=== PATIENT | female | born 1940 | race Caucasian/White ===

== ENCOUNTER 2019-09-30 12:58 | Outpatient (CLI) | payer MEDICARE, SELFPAY | END 2019-09-30 12:59 | disposition home or self-care (01) | LOC: ANHAUDIO 13:00 | PROVIDERS: PCP Family Medicine; Visit Provider Family Medicine | DX: H90.3 Sensorineural hearing loss, bilateral (principal) | CPT/HCPCS: 92557; 92567 ==

== ENCOUNTER 2021-08-23 14:54 | Outpatient (CLI) | payer MEDICARE, SELFPAY ==
--- NOTE | ~2021-08-23 | MM_ITS ---
EXAMINATION: MM screening liza BI w jostin HISTORY: Screening TECHNIQUE: Craniocaudal and mediolateral oblique 3-D tomosynthesis images were obtained and synthetic 2-D images were generated. CAD analysis was submitted and interpreted. COMPARISON: No prior mammogram is available for comparison at this institution. BREAST PARENCHYMAL COMPOSITION: The breasts are heterogeneously dense, which may obscure small masses . FINDINGS: There are benign bilateral vascular calcifications. There is no evidence of suspicious mass , calcification, or architectural distortion to suggest malignancy in either breast. There has been n o suspicious interval change. IMPRESSION: 1. No mammographic evidence of malignancy. 2. Recommend routine screening mammography in one year. BI-RADS Category 2: Benign finding(s). Reviewed, dictated and finalized at location A.
== END 2021-08-23 14:55 | disposition home or self-care (01) ==
PROVIDERS: PCP Family Medicine; Visit Provider Family Medicine
DX: Z12.31 Encounter for screening mammogram for malignant neoplasm of breast (principal)
CPT/HCPCS: 77063; 77067

== ENCOUNTER 2022-11-29 13:29 | Outpatient (CLI) | payer MEDICARE, SELFPAY ==
--- NOTE | ~2022-11-29 | DEXA_ITS ---
Bone Density Report Name: MARCO A BARNHART Age: 82 Sex: Female Ethnicity: White Date of : 1940 Indication: postmenopausal; screening for osteoporosis; height loss; cancer; hysterectomy; Referring Provider: MINI OSBORN Study: Bone densitometry was performed. Exam Date: November 29, 2022 Accession number: [id number] Bone Density: Region BMD T-score Z-score Classification AP Spine(L1, L2) 1.156 1.6 4.1 Normal Femoral Neck (Left) 0.672 -1.6 0.7 Osteopenia Total Hip (Left) 0.799 -1.2 0.9 Osteopenia World Health Organization criteria for BMD impression classify patients as: Normal (T-score at or above -1.0), Osteopenia (T-score between -1.0 and -2.5), or Osteoporosis (T-score at or below -2.5). 10-year Fracture Risk(1): Major Osteoporotic Fracture 14% Hip Fracture 3.5% Reported Risk Factors: [place] (), Neck BMD=0.672, BMI=27.7 (1) FRAX(R) Version 3.08. Fracture probability calculated for an untreated patient. Fracture probability may be lower if the patient has received treatment. Clinical Information Provided by Patient: Has the following medical conditions: Cancer, Hysterectomy Patient maximum height was 68 Menopause Age: 51 Drinks caffeinated beverages Onset of menses at age 19 Number of children 2 Impression: The patient has low bone mass, based on the Left Femoral Neck T-score. The patient has an estimated ten-year risk of hip fracture of 3.5% and an estimated ten-year risk of major fracture of 14%, based on the WHO FRAX algorithm. Discussion: BONE DENSITY IS LOW AT ONE OR MORE SKELETAL SITES. THE PATIENT'S BMD AND CLINICAL RISK FACTORS CONTRIBUTE TO THIS PATIENT'S INCREASED RISK OF FRACTURE. This patient's lowest T-score is low at one or more skeletal sites. It meets the World Health Organization's (WHO) criteria for ?low bone mass? (T-score between -1.0 and -2.5). The patient's 10-year risk of hip fracture as calculated by FRAX exceeds the threshold where pharmacological therapy is recommended by the National Osteoporosis Foundation (NOF). However, all treatment decisions require clinical judgment and consideration of individual patient factors, including patient preferences, comorbidities, previous drug use, risk factors not captured in the FRAX model (e.g., frailty, falls, vitamin D deficiency, increased bone turnover, interval significant decline in bone density) and possible under or overestimation of fracture risk by FRAX. The patient should follow a healthful lifestyle (good nutrition with adequate calcium and vitamin D, and appropriate weight-bearing exercise). Follow-Up: Consider a repeat BMD and Vertebral Fracture Assessment (VFA) exam in 2 years or sooner if medically necessary, to reassess this patient's status. Reported by: RASTA on 11/29/2022 2:02:00 PM.
--- NOTE | ~2022-11-29 | MM_ITS ---
EXAMINATION: MM screening liza BI w jostin HISTORY: Screening mammogram TECHNIQUE: Craniocaudal and mediolateral oblique 3-D tomosynthesis images were obtained and synthetic 2-D images were generated. CAD analysis was submitted and interpreted. COMPARISON: August 23, 2021 bilateral screening mammogram BREAST PARENCHYMAL COMPOSITION: The breasts are heterogeneously dense, which may obscure small masses . FINDINGS: There is stable diminished size of the left breast compared to the right consistent with hi story of prior partial mastectomy for breast cancer in 1992. Multiple bilateral scattered benign calcifications and prominent arterial calcifications are noted. T here is no evidence of suspicious mass, calcification, or architectural distortion to suggest maligna ncy in either breast. There has been no suspicious interval change. IMPRESSION: 1. Benign findings. No mammographic evidence of malignancy. 2. Recommend routine screening mammography in one year. BI-RADS Category 2: Benign finding(s). Reviewed, dictated and finalized at location A.
== END 2022-11-29 13:30 | disposition home or self-care (01) ==
LOC: ANHIMG 13:30
PROVIDERS: PCP Family Medicine; Visit Provider Family Medicine
DX: Z12.31 Encounter for screening mammogram for malignant neoplasm of breast (principal); Z78.0 Asymptomatic menopausal state; M85.852 Other specified disorders of bone density and structure, left thigh
CPT/HCPCS: 77063; 77067; 77080

== ENCOUNTER 2023-12-18 01:41 | Day surgery (SDC) | payer MEDICARE, SELFPAY ==
[2023-12-05 09:56] VITALS: BMI 24.8
[2023-12-18 08:55] VITALS: BP 151/69; PULSE 77; RESP 18; TEMP 36.1; O2SAT 99
[2023-12-18] MEDS: LACTATED RINGERS 1,000 ML 150 ML IV CONT (08:57)
--- NOTE | 2023-12-18 09:02 | WPDANESEPPF ---
Anes - Initial Pre Proc Eval Procedure: Operation Date: 12/18/23 09:30 Proposed Procedures p Esophagogastroduodenoscopy - Juaquin Manrique MD Date/Time: 12/18/23 09:02 Surgeon: Juaquin Manrique MD Pre Op Diagnosis: GERD, Dyskinesia of esophagus, Patient Data Age: 83 Gender: F Height: 1.7 m Weight: 69.8 kg Last Vital Signs Temp 96.9 F L 12/18/23 08:55 Pulse 77 12/18/23 08:55 Resp 18 12/18/23 08:55 BP 151/69 H 12/18/23 08:55 Pulse Ox 99 12/18/23 08:55 O2 Del Method Room Air 12/18/23 08:55 Allergies Allergy/AdvReac Type Severity Reaction Status Date / Time codeine Allergy Unknown Dizziness Verified 12/18/23 08:29 Sulfa (Sulfonamide Allergy Unknown Nausea and Verified 12/18/23 08:29 Antibiotics) Vomiting sulfur dioxide Allergy Unknown Confusion Verified 12/18/23 08:29 Home Medications Medication Instructions Recorded Confirmed Type acetaminophen 650 mg 650 mg PO Q12H 04/30/19 12/18/23 History tablet,extended release (Tylenol Arthritis Pain) calcium carbonate 500 mg-vitamin 1 tablet PO DAILY 04/30/19 12/18/23 History D3 3.125 mcg (125 unit) tablet clopidogrel 75 mg tablet (Plavix) 75 mg PO DAILY #90 tabs 12/11/21 12/18/23 Rx clotrimazole 1 % vaginal cream 1 appful vaginal QHS #45 grams 08/12/22 12/18/23 Rx (Clotrimazole-7) pantoprazole 40 mg tablet,delayed See Rx Instructions .Route 04/17/23 12/18/23 Rx release .COMPLEX #180 tabs carvedilol 25 mg tablet 25 mg PO Q12H 04/30/23 12/18/23 History fosinopril 20 mg tablet See Rx Instructions .Route 05/05/23 12/18/23 Rx .COMPLEX #360 tabs fluticasone propionate 50 See Rx Instructions .Route 06/24/23 12/18/23 Rx mcg/actuation nasal .COMPLEX #48 mL spray,suspension pravastatin 40 mg tablet 40 mg PO DAILY #90 tabs 07/09/23 12/18/23 Rx cholestyramine-aspartame 4 gram See Rx Instructions .Route 08/11/23 12/18/23 Rx oral powder (Prevalite) .COMPLEX #693 grams amlodipine 10 mg tablet 10 mg PO DAILY #90 tabs 10/24/23 12/18/23 Rx hydrochlorothiazide 25 mg tablet 25 mg PO DAILY #90 tabs 10/24/23 12/18/23 Rx carvedilol 6.25 mg tablet 12.5 mg PO Q12H 12/18/23 12/18/23 History Patient hx anesthesia problems: none Family hx anesthesia problems: none Results Review: All pre-operative results and documents have been reviewed as part of the pre-operative evaluation. [facility] Past Medical History Medical History Tear of left gluteus medius tendon Surgical History Surgical History History of fundoplication S/P gastric surgery S/P total hip arthroplasty Right Family History Family History Mother Diabetes mellitus Father Family history of cardiovascular disease Social History Social History Smoking status: Never smoker Second hand tobacco smoke exposure: No Alcohol intake: never Substance use: never Substance use type: does not use Do You Feel Safe in your Home?: Yes Lack of Transportation: No Lack of Food: Never True Current Housing: I Have Housing Concerned About Future Housing: No Difficulty Paying Gas/Electric Bills: No Difficulty Paying for Meds: No Currently Unemployed: YES Education: Don't Know Difficulty w/ Childcare or Family Care: No Living arrangements: alone Occupation/Education: retired Gender identity (if verbalized by the patient): Female Sexual Orientation (if Verbalized by the Patient): Straight or Heterosexual Spiritual care concerns: No Anes - Eval Final PreProcedure Day of Procedure 12/18/23 09:02 Patient weight: normal Heart: regular rate and rhythm Lungs: clear to auscultation Airway: Mallampati scale class II Neurological: alert and oriented Last oral intake: >/= 8 hours ASA classification: III Emergent: no
--- NOTE | 2023-12-18 09:11 | SUR.PREOP ---
Patient states she took her Plavix yesterday. No cardiac clearance or instructions to hold blood thinner on chart. Spoke with Dr. Mcdermott and Dr. Delaney regarding this. Okay to proceed with procedure today per both.
--- NOTE | 2023-12-18 09:27 | PM.HPGS ---
History of Present Illness History of Present Illness Consent: Risks, benefits, and alternatives have been discussed and questions answered. Patient agrees to proceed with procedure. Chief complaint: GERD, Dyskinesia of esophagus, Narrative: Alka Ayoub is a 83 year old female with more symptomatic gerd despite protonix, also Lee's in 2019, h/o fundoplication Review of Systems Review of Systems: All systems reviewed & are unremarkable except as noted in HPI and below PMFSH Past Medical History Medical History Tear of left gluteus medius tendon Surgical History Surgical History (Updated 12/18/23 @ 09:30 by Juaquin Manrique MD) History of fundoplication S/P gastric surgery S/P total hip arthroplasty Right Family History Family History Mother Diabetes mellitus Father Family history of cardiovascular disease Social History Social History Smoking status: Never smoker Second hand tobacco smoke exposure: No Alcohol intake: never Substance use: never Substance use type: does not use Do You Feel Safe in your Home?: Yes Lack of Transportation: No Lack of Food: Never True Current Housing: I Have Housing Concerned About Future Housing: No Difficulty Paying Gas/Electric Bills: No Difficulty Paying for Meds: No Currently Unemployed: YES Education: Don't Know Difficulty w/ Childcare or Family Care: No Living arrangements: alone Occupation/Education: retired Gender identity (if verbalized by the patient): Female Sexual Orientation (if Verbalized by the Patient): Straight or Heterosexual Spiritual care concerns: No Meds Home Medications and Allergies Home Medications Medication Instructions Recorded Confirmed Type acetaminophen 650 mg 650 mg PO Q12H 04/30/19 12/18/23 History tablet,extended release (Tylenol Arthritis Pain) calcium carbonate 500 mg-vitamin 1 tablet PO DAILY 04/30/19 12/18/23 History D3 3.125 mcg (125 unit) tablet clopidogrel 75 mg tablet (Plavix) 75 mg PO DAILY #90 tabs 12/11/21 12/18/23 Rx clotrimazole 1 % vaginal cream 1 appful vaginal QHS #45 grams 08/12/22 12/18/23 Rx (Clotrimazole-7) pantoprazole 40 mg tablet,delayed See Rx Instructions .Route 04/17/23 12/18/23 Rx release .COMPLEX #180 tabs carvedilol 25 mg tablet 25 mg PO Q12H 04/30/23 12/18/23 History fosinopril 20 mg tablet See Rx Instructions .Route 05/05/23 12/18/23 Rx .COMPLEX #360 tabs fluticasone propionate 50 See Rx Instructions .Route 06/24/23 12/18/23 Rx mcg/actuation nasal .COMPLEX #48 mL spray,suspension pravastatin 40 mg tablet 40 mg PO DAILY #90 tabs 07/09/23 12/18/23 Rx cholestyramine-aspartame 4 gram See Rx Instructions .Route 08/11/23 12/18/23 Rx oral powder (Prevalite) .COMPLEX #693 grams amlodipine 10 mg tablet 10 mg PO DAILY #90 tabs 10/24/23 12/18/23 Rx hydrochlorothiazide 25 mg tablet 25 mg PO DAILY #90 tabs 10/24/23 12/18/23 Rx carvedilol 6.25 mg tablet 12.5 mg PO Q12H 12/18/23 12/18/23 History Allergies Allergy/AdvReac Type Severity Reaction Status Date / Time codeine Allergy Unknown Dizziness Verified 12/18/23 08:29 Sulfa (Sulfonamide Allergy Unknown Nausea and Verified 12/18/23 08:29 Antibiotics) Vomiting sulfur dioxide Allergy Unknown Confusion Verified 12/18/23 08:29 Vital Signs Vital Signs - 24 hr 12/18/23 08:55 Temperature 96.9 F L Pulse Rate 77 Respiratory Rate 18 Blood Pressure 151/69 H Pulse Oximetry 99 Oxygen Delivery Room Air Exam Const: General: comfortable and no acute distress HENMT: Face/Nose/Sinus: Normal nares present Eyes: General: appearance normal, both eyes and all related structures Neck: Neck: no JVD Resp: Auscultation: clear to auscultation bilaterally Cardio: Rate: regular rate Rhythm: regular rhythm GI: Inspection:
[2023-12-18 09:41] VITALS: BP 93/53; PULSE 75; RESP 26; O2SAT 100
[2023-12-18 09:51] VITALS: BP 106/58; PULSE 73; RESP 15; O2SAT 100
[2023-12-18 10:01] VITALS: BP 120/56; PULSE 67; RESP 21; O2SAT 100
== END 2023-12-18 10:15 | disposition home or self-care (01) ==
PROVIDERS: PCP Family Medicine; Referring Provider Physician Assistant; Visit Provider Internal Medicine Gastroenterology
PROC: 0DJ08ZZ Inspection of Upper Intestinal Tract, Via Natural or Artificial Opening Endoscopic (ICD-10-PCS; CPT 43235; principal; 2023-12-18 09:30)
DX: K22.70 Barrett's esophagus without dysplasia (principal); K44.9 Diaphragmatic hernia without obstruction or gangrene; K21.9 Gastro-esophageal reflux disease without esophagitis; Z79.02 Long term (current) use of antithrombotics/antiplatelets; Z98.890 Other specified postprocedural states; Z98.84 Bariatric surgery status; Z82.49 Family history of ischemic heart disease and other diseases of the circulatory system
CPT/HCPCS: 43239; 88305; J2704; J7120

== ENCOUNTER 2024-04-07 09:54 | Outpatient (CLI) | payer MEDICARE, SELFPAY ==
--- NOTE | ~2024-04-07 | MM_ITS ---
EXAMINATION: MM screening liza BI w jostin HISTORY: Screening TECHNIQUE: Craniocaudal and mediolateral oblique 3-D tomosynthesis images were obtained and synthetic 2-D images were generated. CAD analysis was submitted and interpreted. COMPARISON: Comparison to multiple prior studies sequentially, with oldest reviewed study dated 08/23. BREAST PARENCHYMAL COMPOSITION: Dense: The breasts are extremely dense, which lowers the sensitivity of mammography. FINDINGS: There is no evidence of suspicious mass, calcification, or architectural distortion to sugg est malignancy in either breast. There has been no suspicious interval change. IMPRESSION: 1. No mammographic evidence of malignancy. 2. Recommend routine screening mammography in one year. BI-RADS Category 1: Negative Reviewed, dictated and finalized at location B. [facility]
== END 2024-04-07 09:55 | disposition home or self-care (01) ==
LOC: ANHIMG 09:56
PROVIDERS: PCP Family Medicine; Visit Provider Family Medicine
DX: Z12.31 Encounter for screening mammogram for malignant neoplasm of breast (principal)
CPT/HCPCS: 77063; 77067